=== PATIENT | female | born 1960 | race Caucasian/White ===

== ENCOUNTER 2018-03-11 09:57 | Emergency (ER) | payer SELFPAY ==
[2018-03-11] MEDS ORDERED: NORMAL SALINE 1000 ML 1,000 ML IV ONE (10:29)
[2018-03-11] MEDS ORDERED: ONDANSETRON HCL INJ/PF 4 MG/2 ML SDV IV ONE (10:30)
[2018-03-11 11:10] LABS: ABSOLUTE EOSINOPHILS # (AUTO) 0.1 10^3/uL (0.0-0.6); ABSOLUTE MONOCYTES (AUTO) 0.4 10^3/uL (0.1-1.4); ABSOLUTE NEUT (AUTO) 5.7 10^3/uL (1.7-8.2); BASOPHILS % (AUTO) 0.5 % (0-2); EOSINOPHILS % (AUTO) 0.8 % (0-6); HEMATOCRIT 39.9 % (36.0-47.0); HEMOGLOBIN 13.9 g/dL (12.0-15.5); LYMPHOCYTES % (AUTO) 14.2 % (13-45); MEAN CORPUSCULAR HGB CONC 34.7 g/dL (32.0-36.0); MEAN CORPUSCULAR VOLUME 86 fl (80-97); MONOCYTES % (AUTO) 5.9 % (3-13); PLATELET COUNT 229 10^3/uL (150-450); RED BLOOD COUNT 4.62 10^6/uL (3.72-5.28); RED CELL DISTRIBUTION WIDTH 11.7 % (11.5-14.0); SEGMENTED NEUTROPHILS % (AUTO) 78.6 % (42-78); TOTAL CELLS COUNTED % (AUTO) 100 %; WHITE BLOOD COUNT 7.2 10^3/uL (4.0-10.5)
[2018-03-11 11:26] LABS: ALANINE AMINOTRANSFERASE 31 U/L (9-52); ALBUMIN 4.2 g/dL (3.5-5.0); ALKALINE PHOSPHATASE 84 U/L (38-126); ANION GAP 14 (5-19); ASPARTATE AMINO TRANSFERASE 42 U/L (14-36); BILIRUBIN,DIRECT 0.4 mg/dL (0.0-0.4); BLOOD UREA NITROGEN 18 mg/dL (7-20); CALCIUM 9.9 mg/dL (8.4-10.2); CARBON DIOXIDE 24 mmol/L (22-30); CHLORIDE 104 mmol/L (98-107); GLUCOSE 131 mg/dL (75-110); LIPASE 94.4 U/L (23-300); POTASSIUM 4.1 mmol/L (3.6-5.0); SODIUM 142.2 mmol/L (137-145)
[2018-03-11] MEDS ORDERED: LORAZEPAM INJ 2 MG/1 ML VIAL IV ONE (11:59)
[2018-03-11] MEDS ORDERED: FENTANYL CITRATE INJ/PF 100 MCG/2 ML AMPUL IV ONE (12:00)
[2018-03-11] MEDS ORDERED: HYDROMORPHONE HCL INJ/PF 2 MG/ML AMPULE IV ONE (12:31)
[2018-03-11 12:39] LABS: APPEARANCE,URINE CLEAR; BILIRUBIN,URINE NEGATIVE (NEGATIVE); COLOR,URINE YELLOW; GLUCOSE, URINE NEGATIVE (NEGATIVE); KETONES,URINE TRACE mg/dL (NEGATIVE); LEUKOCYTE ESTERASE,URINE NEGATIVE (NEGATIVE); NITRITE,URINE NEGATIVE (NEGATIVE); PROTEIN,URINE NEGATIVE (NEGATIVE); URINE SPECIFIC GRAVITY 1.009; UROBILINOGEN,URINE NEGATIVE mg/dL (<2.0)
[2018-03-11 13:05] LABS: URINE AMPHETAMINES SCREEN NEGATIVE; URINE BARBITURATES SCREEN NEGATIVE; URINE BENZODIAZEPINES SCREEN NEGATIVE; URINE COCAINE SCREEN NEGATIVE; URINE MARIJUANA (THC) SCREEN NEGATIVE; URINE METHADONE SCREEN NEGATIVE; URINE PHENCYCLIDINE SCREEN NEGATIVE
--- NOTE | 2018-03-11 16:12 | RADIOLOGY REPORT (SQ) ---
EXAM DESCRIPTION: CT ABD/PELVIS WITH IV ORAL COMPLETED DATE/TIME: 03/11/2018 3:52 pm REASON FOR STUDY: Abdominal pain, diarrhea. COMPARISON: 03/24/2013 TECHNIQUE: CT scan of the abdomen and pelvis performed using helical scanning technique with dynamic intravenous contrast injection. No oral contrast. Images reviewed with lung, soft tissue, and bone windows. Reconstructed coronal and sagittal MPR images reviewed. Delayed images for evaluation of the urinary system also acquired. All images stored on PACS. All CT scanners at this facility use dose modulation, iterative reconstruction, and/or weight based d osing when appropriate to reduce radiation dose to as low as reasonably achievable (ALARA). [facility]: Dose Right [facility]: CareDose [facility]: Dose Right [facility]: Teradose 4D [facility]: [employer] CONTRAST TYPE AND DOSE: contrast/concentration: Isovue 350.00 mg/ml; Total Contrast Delivered: 100.0 ml; Total Saline Delivered: 72.0 ml RENAL FUNCTION: BUN 18; creatinine 0.73 RADIATION DOSE: CT Rad equipment meets quality standard of care and radiation dose reduction techniq ues were employed. CTDIvol: 15.1 - 19.2 mGy. DLP: 2107 mGy-cm.. LIMITATIONS: None. FINDINGS: LOWER CHEST: No significant findings. No nodules or infiltrates. LIVER: Normal size. Diffusely decreased attenuation consistent with hepatic steatosis. No focal mas s. No intrahepatic biliary dilatation. SPLEEN: Normal size. No focal lesions. PANCREAS: The pancreas appears to be partially fatty replaced, noting mild, diffuse surrounding infla mmatory changes. No focal fluid collection or mass. GALLBLADDER: Surgically absent. ADRENAL GLANDS: No significant masses or asymmetry. RIGHT KIDNEY AND URETER: No solid masses. Incidental note is made of a 2.0 cm cyst, not significantl y changed from comparison imaging. No significant calcifications. No hydronephrosis or hydrourete r. LEFT KIDNEY AND URETER: No solid masses. No significant calcifications. No hydronephrosis or hydr oureter. AORTA AND VESSELS: No aneurysm. No dissection. Renal arteries, SMA, celiac without stenosis. RETROPERITONEUM: No retroperitoneal adenopathy, hemorrhage or masses. BOWEL AND PERITONEAL CAVITY: Incidental note is made of a duodenum diverticulum. Diffuse sigmoid div erticular disease is present without acute inflammatory changes. The bowel is otherwise unremarkable . No free peritoneal fluid. APPENDIX: Surgically absent. PELVIS: No mass. No free fluid. Normal bladder. ABDOMINAL WALL: Fat containing left inguinal hernia. BONES: Degenerative changes are seen of the hips and spine. No acute findings. OTHER: No other significant finding. IMPRESSION: Constellation of findings consistent with uncomplicated pancreatitis. Other chronic and incidental findings as detailed above. TECHNICAL DOCUMENTATION: JOB ID: [id number] Quality ID # [id number]: Final reports with documentation of one or more dose reduction techniques (e.g., Au tomated exposure control, adjustment of the mA and/or kV according to patient size, use of iterative reconstruction technique) 2010 [employer]- All Rights Reserved Reading location - IP/workstation name: [email or web address]
--- NOTE | 2018-03-11 17:28 | ER Document Report ---
ED GI/ - General Chief Complaint: Abdominal Pain Stated Complaint: VOMITING Time Seen by Provider: 03/11/18 10:29 Notes: Patient is here complaining of stomach and back pains that began about 8 PM last night. She had some nausea and vomiting yesterday the pain is very sharp and goes over the entire abdomen and into her back. It comes and goes. Had some diarrhea and soft stools during this past week. Patient has been on amoxicillin for the past week since she was seen and diagnosed with an ear infection and sinus infection. Has not noticed any blood in her stools. Is not aware of any fever. Patient has had her appendix removed and also had her gallbladder removed in 1083. Tubal ligation. - Related Data Allergies/Adverse Reactions: No Known Allergies Allergy (Verified 05/13/13 07:18) Past Medical History - Social History Smoking Status: Former Smoker - Stopped 5 years ago. Chew tobacco use (# tins/day): No Frequency of alcohol use: None Drug Abuse: None Family History: Reviewed & Not Pertinent, CAD - MOTHER [place] @ 62. Patient has suicidal ideation: No Patient has homicidal ideation: No - Past Medical History Cardiac Medical History: Reports: Hx Hypertension Endocrine Medical History: Reports: Hx Hypothyroidism Renal/ Medical History: Denies: Hx Peritoneal Dialysis Past Surgical History: Reports: Hx Appendectomy, Hx Cholecystectomy, Hx Gynecologic Surgery - tubal ligation, Hx Tubal Ligation - Immunizations Hx Diphtheria, Pertussis, Tetanus Vaccination: Yes Review of Systems - Review of Systems Notes: REVIEW OF SYSTEMS: CONSTITUTIONAL : Denies fever. EENT: Denies eye, ear, nose or mouth or throat pain or other symptoms. CARDIOVASCULAR: Denies chest pain. RESPIRATORY: Denies cough, chest congestion, or shortness of breath. GASTROINTESTINAL: See HPI. GENITOURINARY: Denies difficulty or painful urinating, urinary frequency, blood in urine. MUSCULOSKELETAL: Denies neck pain. Denies joint pain or swelling. Has back pain where the abdominal pain shoots through. SKIN: Denies rash or skin lesions. NEUROLOGICAL: Denies LOC or altered mental status. Denies headache. Denies sensory loss or motor deficits. ALL OTHER SYSTEMS REVIEWED AND NEGATIVE. Physical Exam - Vital signs Vitals: Temp Pulse Resp BP Pulse Ox 97.8 F 120 H 20 126/66 H 100 03/11/18 18:13 03/11/18 18:13 03/11/18 18:13 03/11/18 18:13 03/11/18 18:13 Interpretation: Normal, Tachycardic - Notes Notes: PHYSICAL EXAMINATION: GENERAL: Anxious and appears to be in pain. HEAD: Atraumatic, normocephalic. EYES: Pupils equal round and reactive to light, extraocular movements intact. ENT: oropharynx clear without exudates. Moist mucous membranes. NECK: Normal range of motion, supple. LUNGS: Breath sounds clear and equal bilaterally. HEART: Regular rate and rhythm without murmurs. ABDOMEN: Soft, mild, diffuse tenderness throughout the entire abdomen. Definitely no guarding or rebound. No masses. No bruits heard. BACK: No tenderness throughout entire back. EXTREMITIES: Normal range of motion without pain. NEUROLOGICAL: Normal speech, normal gait. Normal sensory, motor, and reflex exams. Awake, alert, and oriented x3. PSYCH: Normal mood, normal affect. SKIN: Warm, dry, no rashes. Course - Re-evaluation Re-evalutation: 03/11/18 21:28 Patient felt much better at this time when she was discharged. We discussed treatment options to include admission and IV fluids versus pain management at home on liquids for a couple of days and then advancing her diet. Patient wishes to try home treatment first and I think that is a reasonable course for this patient. Have advised the patient is to follow-up with a business travel consultant. I provided her with Dr. Roberts's name and contact information. I suggested that she can ask her primary care provider to refer her to someone or if she has a family preference of his business travel consultant that would be fine as well but I do think she needs a gastrointestinal follow-up appointment. Patient is being discharged with a prescription for Dilaudid and Zofran. - Vital Signs Vital signs: Temp Pulse Resp BP Pulse Ox 97.8 F 120 H 20 126/66 H 100 03/11/18 18:13 03/11/18 18:13 03/11/18 18:13 03/11/18 18:13 03/11/18 18:13 - Laboratory Result Diagrams: 03/11/18 10:50 03/11/18 10:50 Laboratory results interpreted by me: 03/11/18 03/11/18 03/11/18 10:50 10:50 12:17 Seg Neutrophils % 78.6 H Glucose 131 H AST 42 H Urine Ketones TRACE H Urine Blood SMALL H - Diagnostic Test Radiology reviewed: Image reviewed, Reports reviewed - CT scan shows acute pancreatitis. No other significant findings. Discharge - Discharge Clinical Impression: Abdominal pain, Pancreatitis Condition: Stable Disposition: HOME, SELF-CARE Additional Instructions: ABDOMINAL PAIN: There are many causes of abdominal pain. Pain can mean a serious problem requiring surgery (such as appendicitis). It can also be an innocent problem that goes away on its own (such as a viral infection). Often, time must pass to determine the cause of pain. The physician does not feel that hospitalization is necessary, at present. Things may change within the next 24 hours. Call the doctor or come back for re- examination if any problems occur, such as: (1) Pain that becomes more severe, steady, or becomes concentrated in one specific area. Also, pain that is more severe with movement or coughing. (2) Vomiting that persists or becomes more frequent. (3) Blood in the vomitus, urine, or bowel movements. Blood in the stool may have a tarry or black appearance. (4) Shaking chills or fever greater than 100 degrees F. (5) The abdomen becomes more distended or swollen. (6) Bowel movements cease. (7) Failure to improve as expected. Pancreatitis Pancreatitis is an inflammation of the pancreas, an organ at the back of your abdomen. The pancreas produces insulin and enzymes that digest your food. Pancreatitis can be caused by gallstones in the bile duct, by alcohol or viruses, or by excess fat or calcium in the blood stream. Occasionally, pancreatitis occurs when a stomach ulcer huber through into the pancreas. We try to find the cause of pancreatitis, but some tests can't be done until the pancreas heals. The usual symptoms of pancreatitis are pain in the pit of the stomach that goes straight through to the back, vomiting, and low-grade fever. Severe cases require hospital admission, but many patients with mild pancreatitis do well at home. You will probably need medicine for pain and for vomiting. Sometimes we prescribe medicine to decrease stomach acid secretion and to decrease flow of pancreatic juices. Start with a diet of clear liquids (soda pop, juices). When the pain is decreasing, you can add some simple starches (potato, toast, applesauce). Avoid proteins and fats until you are completely painfree. When you're better, your doctor may suggest treatment to prevent future pancreatitis (such as gallbladder removal). Avoid alcohol forever. Get immediate treatment for any future episodes. Contact your doctor at once or return here if you have increasing pain, shortness of breath, general swelling, increasing size of the abdomen, continued vomiting, muscle spasms, or other new symptoms. PAIN MEDICATION INJECTION: You have received an injection of a pain medication. You should experience significant pain relief within 45 minutes. This drug is a narcotic - - it will impair your judgement, slow your reaction time and make you sleepy ( as well as relieve your pain). Narcotics also can cause nausea. You should not drive, work with machinery, or perform any task requiring mental alertness until all effects of the medication are gone -- six to eight hours. Do not take any alcohol, or sedatives, and do not take any other medication without checking with your physician. ANTINAUSEA MEDICATION: You have been given a medication to suppress nausea and vomiting. This type of medication can be given as a shot, pill, or suppository. It will usually last for many hours. Pills and shots usually last six to eight hours, suppositories last about 12 hours. For the typical illness, only one or two doses of the medication may be necessary. Mild lightheadedness may occur. This type of medicine can cause drowsiness. Do not drive or operate dangerous machinery while under its influence. Do not mix with alcohol. See your doctor at once if you have muscle spasms or tightness, or uncontrollable motions (particularly of the neck, mouth, or jaw). Persistent vomiting or severe lightheadedness should also be evaluated by the physician. ORAL NARCOTIC MEDICATION: You have been given a prescription for pain control. This medication is a narcotic. It's best taken with food, as nausea can result if taken on an empty stomach. Don't operate machinery or drive within six hours of taking this medication. Do not combine this medicine with alcohol, or with any medication which can cause sedation (such as cold tablets or sleeping pills) unless you get permission from the physician. Narcotics tend to cause constipation. If possible, drink plenty of fluids and eat a diet high in fiber and fruits. Please be aware that prescription narcotics also have the potential for abuse. People become addicted to these medications because of the general sense of wellbeing that they induce. This feeling along with a significant reduction in tension, anxiety, and aggression provides a stimulating seductive quality to these drugs. Once your pain is under control, we encourage you to discard your unused narcotics. FOLLOW-UP CARE: If you have been referred to a physician for follow-up care, call the physician s office for an appointment as you were instructed or within the next two days. If you experience worsening or a significant change in your symptoms, notify the physician immediately or return to the Emergency Department at any time for re-evaluation. I have given you a referral to Dr. Roberts, a local business travel consultant. I recommend you follow-up with a business travel consultant in the coming weeks. Very low-fat diet is recommended. Stop the amoxicillin you have been taking. Return if your condition worsens in the next day or 2 or return if your condition gets worse at any time. Prescriptions: Hydromorphone HCl [Dilaudid 2 mg Tablet] 2 mg PO Q4HP PRN #12 tablet PRN Reason: Ondansetron [Zofran Odt 4 mg Tablet] 1 - 2 tab PO Q4H PRN #15 tab.rapdis PRN Reason: For Nausea/Vomiting Forms: Return to Work Referrals: MASTER ROBERTS MD [ACTIVE STAFF] - Follow up as needed
[2018-03-11 18:14] VITALS: BP 126/66
== END 2018-03-11 18:20 | disposition home or self-care (01) ==
LOC: ER 09:57
DX: K85.90 Acute pancreatitis without necrosis or infection, unspecified (principal); M54.9 Dorsalgia, unspecified; R10.84 Generalized abdominal pain; R19.7 Diarrhea, unspecified; R11.2 Nausea with vomiting, unspecified; H66.90 Otitis media, unspecified, unspecified ear; J32.9 Chronic sinusitis, unspecified; I10 Essential (primary) hypertension; Z90.49 Acquired absence of other specified parts of digestive tract; Z87.891 Personal history of nicotine dependence
CPT/HCPCS: 99284; 96361; 96374; 96375; 36415; 82150; 83690; 85025; 80053; 81001; 80307; 74177; J3010; J1170; J2060; J2405; J7030

== ENCOUNTER → 2019-10-17 | Outpatient (CLI) | payer BC ==
[2019-10-17 11:36] LABS: ABSOLUTE EOSINOPHILS # (AUTO) 0.3 10^3/uL (0.0-0.6); ABSOLUTE LYMPHOCYTES (AUTO) 1.8 10^3/uL (0.5-4.7); ABSOLUTE MONOCYTES (AUTO) 0.6 10^3/uL (0.1-1.4); ABSOLUTE NEUT (AUTO) 4.5 10^3/uL (1.7-8.2); BASOPHILS % (AUTO) 0.6 % (0-2); EOSINOPHILS % (AUTO) 3.8 % (0-6); HEMATOCRIT 42.2 % (36.0-47.0); HEMOGLOBIN 14.2 g/dL (12.0-15.5); LYMPHOCYTES % (AUTO) 25.5 % (13-45); MEAN CORPUSCULAR HEMOGLOBIN 29.6 pg (27.0-33.4); MEAN CORPUSCULAR HGB CONC 33.7 g/dL (32.0-36.0); MEAN CORPUSCULAR VOLUME 88 fl (80-97); MONOCYTES % (AUTO) 7.6 % (3-13); PLATELET COUNT 304 10^3/uL (150-450); RED BLOOD COUNT 4.81 10^6/uL (3.72-5.28); RED CELL DISTRIBUTION WIDTH 12.4 % (11.5-14.0); SEGMENTED NEUTROPHILS % (AUTO) 62.5 % (42-78); TOTAL CELLS COUNTED % (AUTO) 100 %; WHITE BLOOD COUNT 7.2 10^3/uL (4.0-10.5)
--- NOTE | 2019-10-17 11:40 | RADIOLOGY REPORT (SQ) ---
EXAM DESCRIPTION: TIBIA FIBULA RIGHT IMAGES COMPLETED DATE/TIME: 10/17/2019 11:05 am REASON FOR STUDY: NON-PRESSURE CHRONIC ULCER OF RIGHT CALF W FAT LAYER EXPOSED L97.212 NON-PRESSURE CHRONIC ULCER OF RIGHT CALF W FAT LAYER COMPARISON: None. NUMBER OF VIEWS: Two views. TECHNIQUE: Two radiographic images acquired of the right tibia and fibula to include the knee and an kle in at least one projection. LIMITATIONS: None. FINDINGS: MINERALIZATION: Normal. BONES: No acute fracture or dislocation. No worrisome bone lesions. SOFT TISSUES: Mild soft tissue swelling about the ankle. No radiopaque foreign body. OTHER: No other significant finding. IMPRESSION: No evidence of acute bony abnormality. No findings suggestive of osteomyelitis. TECHNICAL DOCUMENTATION: JOB ID: [id number] 2010 [employer]- All Rights Reserved Reading location - IP/workstation name: [email or web address]
[2019-10-17 12:08] LABS: ALBUMIN 4.3 g/dL (3.5-5.0); ALKALINE PHOSPHATASE 74 U/L (38-126); ANION GAP 8 (5-19); ASPARTATE AMINO TRANSFERASE 20 U/L (14-36); BILIRUBIN,TOTAL 0.7 mg/dL (0.2-1.3); BLOOD UREA NITROGEN 15 mg/dL (7-20); C-REACTIVE PROTEIN 11.6 mg/L (<10.0); CALCIUM 9.5 mg/dL (8.4-10.2); CARBON DIOXIDE 27 mmol/L (22-30); CHLORIDE 99 mmol/L (98-107); GLUCOSE 100 mg/dL (75-110); POTASSIUM 4.3 mmol/L (3.6-5.0)
[2019-10-17 12:17] LABS: ERYTHROCYTE SEDIMENTATION RATE 17 mm/hr (0-30)
== END ==
LOC: OD 10:40
PROVIDERS: ATTEND Nurse Practitioner Family
DX: L97.212 Non-pressure chronic ulcer of right calf with fat layer exposed (principal)
CPT/HCPCS: 36415; 80053; 85025; 85652; 86140

== ENCOUNTER → 2019-10-23 | Outpatient (CLI) | payer BC ==
--- NOTE | 2019-10-23 15:11 | RADIOLOGY REPORT (SQ) ---
EXAM DESCRIPTION: ARTERIAL LOWER EXTREM BILAT IMAGES COMPLETED DATE/TIME: 10/23/2019 11:55 am REASON FOR STUDY: RIGHT CALF ULCER L97.212 NON-PRESSURE CHRONIC ULCER OF RIGHT CALF W FAT LAYER COMPARISON: None. TECHNIQUE: Dynamic and static augustin scale and color images acquired of the lower extremity arteries. Additional selected spectral images recorded. LIMITATIONS: ABIs could not be obtained due to equipment malfunction. FINDINGS: RIGHT LEG: INFLOW ARTERIES: Normal, no obstruction evident. FEMORAL ARTERIES:Multiphasic waveforms. Normal, no velocity elevation to suggest focal stenosis. Norm al color Doppler evaluation. No aneurysm. POPLITEAL ARTERY:Multiphasic waveforms. Normal, no velocity elevation to suggest focal stenosis. Norm al color Doppler evaluation. No aneurysm. PATENT TIBIOPERONEAL TRUNK AND 3 VESSEL RUNOFF: Yes, normal vessels. OTHER: No other significant finding. LEFT LEG: INFLOW ARTERIES: Normal, no obstruction evident. FEMORAL ARTERIES:Multiphasic waveforms. Normal, no velocity elevation to suggest focal stenosis. Norm al color Doppler evaluation. No aneurysm. POPLITEAL ARTERY:Multiphasic waveforms. Normal, no velocity elevation to suggest focal stenosis. Norm al color Doppler evaluation. No aneurysm. PATENT TIBIOPERONEAL TRUNK AND 3 VESSEL RUNOFF: Yes, normal vessels. OTHER: No other significant finding. IMPRESSION: No significant stenosis. TECHNICAL DOCUMENTATION: JOB ID: [id number] 2010 [employer]- All Rights Reserved Reading location - IP/workstation name: [email or web address]
== END ==
LOC: SP 07:52
PROVIDERS: ATTEND Nurse Practitioner Family
DX: L97.212 Non-pressure chronic ulcer of right calf with fat layer exposed (principal)
CPT/HCPCS: 93925

== ENCOUNTER 2020-03-23 11:44 | Emergency (ER) | payer BC ==
[2020-03-23 11:59] VITALS: BP 127/81
--- NOTE | 2020-03-23 12:32 | ER Document Report ---
ED ENT - General Chief Complaint: Sinus Congestion Stated Complaint: LIGHTHEADED Time Seen by Provider: 03/23/20 12:21 Primary Care Provider: SOLOMON DOAN FNP-BC [Primary Care Provider] - Follow up as needed - HPI Notes: 59-year-old female presents to ED for evaluation of sinus pain and pressure for the last 9 days. Patient reports that she has increased pressure with palpation to the frontal and maxillary sinuses worse on the right than on the left. Notes that it is worse with positional changes especially if she leans forward. States that she has been trying to use [place] in order to improve her symptoms however she has gotten minimal relief. Patient states that she has had increased mucus production and has been blowing her nose more than usual. Patient has tried minimal [id number] medications as she was uncertain what to take. Patient states that she has bilateral ear pressure. Denies fever or chills. Denies chest pain or shortness of breath. Notes that she does feel mom entarily dizzy due to increased facial pressure with movement. Denies other complaints. - Related Data Allergies/Adverse Reactions: fentanyl Allergy (Verified 03/23/20 12:00) Past Medical History - Social History Smoking Status: Former Smoker Chew tobacco use (# tins/day): No Frequency of alcohol use: None Drug Abuse: None Family History: Reviewed & Not Pertinent, CAD - MOTHER [place] @ 62. Patient has homicidal ideation: No - Past Medical History Cardiac Medical History: Reports: Hx Hypertension Endocrine Medical History: Reports: Hx Hypothyroidism Renal/ Medical History: Denies: Hx Peritoneal Dialysis Past Surgical History: Reports: Hx Appendectomy, Hx Cholecystectomy, Hx Gynecologic Surgery - tubal ligation, Hx Tubal Ligation - Immunizations Hx Diphtheria, Pertussis, Tetanus Vaccination: Yes Review of Systems - Review of Systems Notes: Constitutional: Negative for fever. HENT: Negative for sore throat. Eyes: Negative for visual changes. + for sinus pain and pressure. Cardiovascular: Negative for chest pain. Respiratory: Negative for shortness of breath. Gastrointestinal: Negative for abdominal pain, vomiting or diarrhea. Genitourinary: Negative for dysuria. Musculoskeletal: Negative for back pain. Skin: Negative for rash. Neurological: Negative for headaches, weakness or numbness. 10 point ROS negative except as marked above and in HPI. Physical Exam - Vital signs Vitals: Temp Pulse Resp BP Pulse Ox 97.8 F 59 L 16 127/81 H 96 03/23/20 11:57 03/23/20 11:57 03/23/20 11:57 03/23/20 11:57 03/23/20 11:57 General: No acute distress. Alert and oriented x3. Sitting comfortably in a stretcher. Skin: Intact without any jaundice, pallor, or erythema. Warm and dry. HEENT: Normocephalic, atraumatic. Pupils are equal round reactive to light and accommodation. Extraocular movements are intact. TMs without erythema with bilateral bulging. Canals are clear. Nares patent with discharge. Lateral frontal and maxillary sinus tenderness. Worse on the right than on the left. Teeth in good condition. Pharynx without erythema, edema, or exudates. No tonsillar enlargement. Uvula is midline. Airway is patent. Neck: Supple with no lymphadenopathy. Full range of motion. Heart: Regular rate and rhythm. S1,S2. No murmurs, rubs, or gallops. Lungs: Clear to auscultation bilaterally. No wheezes, rhonchi, rales. Equal chest expansion. No retractions. Psych: Mood and affect appropriate. Course - Re-evaluation Re-evalutation: 03/23/20 14:52 9-year-old female presents to ED for evaluation of possible sinusitis. Patient has had symptoms for roughly 9 days. She has tried some gmdb-haa-btlxpof management without improvement. Patient states that range of motion especially leaning forward tends to worsen her symptoms. On physical exam, patient does have bilateral maxillary sinus tenderness. There is also fluid effusions to both ears. Patient was advised of these findings. I do believe that patient meets criteria for management of acute bacterial sinusitis. I did discuss this with the patient. Patient will be started on a course of doxycycline as well as meclizine and given Diflucan as she is concerned she may develop a yeast infection. I have also started the patient on [id number] Flonase. Patient is advised to follow-up closely with her primary care physician and return if she develops any new or worsening symptoms. Patient understands this course of management and is agreeable with this plan of care. - Vital Signs Vital signs: Temp Pulse Resp BP Pulse Ox 97.8 F 59 L 16 127/81 H 96 03/23/20 11:57 03/23/20 11:57 03/23/20 11:57 03/23/20 11:57 03/23/20 11:57 - Laboratory Results Critical Laboratory Results Reviewed: No Critical Results - Radiology Results Critical Radiology Results Reviewed: No Critical Results Discharge - Discharge Clinical Impression: Acute sinus infection Qualifiers: Sinusitis location: maxillary Recurrence: recurrent Qualified Code(s): J01.01 - Acute recurrent maxillary sinusitis Condition: Stable Disposition: HOME, SELF-CARE Instructions: Sinusitis ([facility]) Additional Instructions: May purchase over the counter flonase to be used twice a day as needed. Prescriptions: Meclizine HCl [Antivert 12.5 mg Tablet] 12.5 mg PO BID #10 tablet Fluconazole [Diflucan] 150 mg PO DAILY #1 tablet Doxycycline Monohydrate 100 mg PO BID #20 capsule Referrals: SOLOMON DOAN FNP-IZA [Primary Care Provider] - Follow up as needed
== END 2020-03-23 12:48 | disposition home or self-care (01) ==
LOC: ER 11:44
DX: J01.01 Acute recurrent maxillary sinusitis (principal); R42 Dizziness and giddiness; I10 Essential (primary) hypertension; E03.9 Hypothyroidism, unspecified; Z90.49 Acquired absence of other specified parts of digestive tract
CPT/HCPCS: 99283